=== PATIENT | female | born 1985 | race Two or more races ===

== ENCOUNTER 2018-09-12 11:20 | Emergency (ER) | payer OTHER ==
[2018-09-12 11:32] VITALS: BP 123/68; PULSE 82; TEMP 98.2; BMI 32.9
--- NOTE | 2018-09-12 12:12 | PDOC ---
History of Present Illness - General Chief Complaint: Urinary Problem Stated Complaint: LOWER BACK PAIN Time Seen by Provider: 09/12/18 11:57 History Source: Patient Exam Limitations: No Limitations - History of Present Illness Initial Comments: 09/12/18 12:21 32YOF who is (had spontaneous last year after IVF), also had b/l tubal coils which she states fell out but she states she still has "her tubes tied" per her [employer] Teresa at [facility]. Also notes h/o endometritis last year at the time she miscarried, after which time she took 21 day course of antibiotics. She comes in with a day and a half of sharp left inguinal pain which started suddenly while she was turning over in bed, and has persisted since that time. She notes it is always present at a low-level but worsens with certain movements and when she urinates. It radiates a small amount to the left inguinal area. She denies any burning on urination, back pain, hematuria, f/c/n/ v/d/c, black/bloody stool, or vaginal bleeding. States she has had a bit more discharge than normal but not a marked change. Does not believe that she could be but is sexually active and no method of BC (states "tubes tied"). Denies concern for STD. Past History - Past Medical History Allergies/Adverse Reactions: Allergies Allergy/AdvReac Type Severity Reaction Status Date / Time No Known Allergies Allergy Verified 09/12/18 11:32 Home Medications: Ambulatory Orders NK [No Known Home Medication] 11/07/15 COPD: No - Immunization History Immunization Up to Date: Yes - Suicide/Smoking/Psychosocial Hx Smoking History: Never smoked Have you smoked in the past 12 months: No Hx Alcohol Use: No Drug/Substance Use Hx: No Substance Use Type: None Review of Systems - Review of Systems Able to Perform ROS?: Yes Comments:: GEN: no fever, chills, malaise, generalized weakness, or weight change HEENT: no ear pain, sore throat, vision change, or eye pain CV: no chest pain, palpitations, lightheadedness, syncope, or edema RESP: no cough, wheezing, or SOB GI: abdominal/pelvic pain, no nausea, vomiting, diarrhea, constipation, or white /black/bloody stool : vaginal discharge, no burning on urination, hematuria, incontinence, retention, bleeding, or discharge MSK: no neck/back pain, muscle weakness/pain, or joint swelling/pain NEURO: no headache, seizure, vertigo, numbness, tingling, or focal weakness PSYCH: no substance use, no behavior change SKIN: no jaundice, no rash ROS otherwise negative except as noted in HPI *Physical Exam - Vital Signs Last Vital Signs Temp Pulse Resp BP Pulse Ox 98.2 F 82 14 123/68 100 09/12/18 11:09/12/18 11:09/12/18 11:09/12/18 11:09/12/18 11:29 - Physical Exam Comments: 09/12/18 12:45 GENERAL: well-appearing, A/Ox4, no distress, answers questions appropriately HEENT: PERRLA, EOMI, moist mucous membranes NECK/BACK: no midline ttp, no spinal stepoff or deformity, no hematoma, full ROM , neck supple CARDIOVASCULAR: regular rate/rhythm, normal S1S2, no MGR, strong peripheral pulses, capillary refill <2 seconds, extremities wwp, no edema LUNGS/RESPIRATORY: no respiratory distress, CTAB GI/ABDOMEN: symmetric [id number], normoactive BS, soft, mild LLQ ttp, no midline pulsatile masses : no CVA tenderness, pelvic normal externally, with mild left adnexal ttp, no chandelier sign, mild-moderate white discharge EXTREMITIES: no muscle atrophy, no acute deformity SKIN: warm and dry, no pallor, no jaundice, no rash, no bruising, no skin breakdown, no cuts, no lesions NEUROLOGICAL: GCS 15, CN II-XII grossly intact, 5/5 strength proximally and distally, no facial droop Medical Decision Making - Medical Decision Making 09/12/18 12:47 Adult female Pt p/w left-sided abdominal pain. Initial Vital Signs Temp Pulse Resp BP Pulse Ox 98.2 F 82 14 123/68 100 09/12/18 11:09/12/18 11:09/12/18 11:09/12/18 11:09/12/18 11:29 Exam: As noted in Physical Exam section. DDX IBNLT: UTI/pyelonephritis, diverticulitis wwo abscess or perforation, colitis, ovarian torsion, PID, TOA, ovarian cyst, malignancy, hernia, AAA/AD, pancreatitis, appendicitis, gastritis, PUD, ACS, renal colic, SBO, bowel ischemia, bowel perforation, cholecystitis, musculoskeletal, constipation, etc. W/U ordered: labs as noted below, US TX ordered: Toradol IM Laboratory Tests 09/12/18 12:11 Urine Color Yellow Urine Appearance Clear Urine pH 5.0 Ur Specific [place] 1.020 Urine Protein Negative Urine Glucose (UA) Negative Urine Ketones Negative Urine Blood Negative Urine Nitrite Negative Urine Bilirubin Negative Urine Urobilinogen 0.2 Ur Leukocyte Esterase Negative Urine HCG, Qual Negative US/TRANSVAGINAL ULTRASOUND US Left pelvic pain. Pelvis ultrasound, transabdominal and transvaginal LMP is 08/24/2018 The uterus measures 11 x 4.5 cm in sagittal and AP dimension with homogeneous echotexture. Endometrial stripe measures 5 mm in thickness. Right ovary was not visualized. Left ovary measures 3 x 2.6 cm and contains a hypoechoic masslike density measuring 2 x 1.8 cm suggestive of a complex cyst with internal echoes. Normal vascular flow, arterial and venous. There is no free fluid in the cul-de-sac IMPRESSION: Normal appearing retroflexed uterus with normal thickness of the endometrial stripe. Complex cyst in the left ovary measuring 2 x 1.8 cm with internal echoes suggestive of a hemorrhagic cyst. Follow-up ultrasound in first week of the next menstrual cycle is recommended for further evaluation. Right ovary was not visualized. Reassessment: Patient states pain much improved, wants to go home, has f/u with Dr. Teresa DIRECTOR OF ANALYTICS. This patient has gotten significant relief of symptoms while in the ED. On last reassessment, vitals are wnl, pain is reasonably controlled, and exam is benign. Workup is not concerning for emergency-level pathology at this time. This patient is appropriate for discharge with close outpatient follow up. She comfortable with this plan and will follow up with her primary care provider and DIRECTOR OF ANALYTICS in 1-3 days. Specific return precautions are discussed and they will come back to the ER if necessary. *DC/Admit/Observation/Transfer Diagnosis at time of Disposition: Ovarian cyst Qualifiers: Laterality: left Qualified Code(s): N83.202 - Unspecified ovarian cyst, left side - Discharge Dispostion Disposition: HOME Condition at time of disposition: Stable Decision to Admit order: No - Referrals Referrals: ON STAFF,NOT [Primary Care Provider] - - Patient Instructions Printed Discharge Instructions: Ovarian Cyst Additional Instructions: You were seen in the ER for pelvic pain. We did an exam, laboratory work on your urine, and an ultrasound, and we did not find any signs of an emergency. Your pain improved with the medications we gave you here in the ER. You have a left ovarian cyst. After our assessment, we believe you are not having a medical emergency and you are safe to go home. Please take ovld-joz-wffxsel pain relievers like naproxen (aleve) or ibuprofen (motrin). Follow up with your primary care provider(s) in the next 1-3 days. Call their clinic [facility], tell them you were seen in the ER, and tell them you need an appointment. Please come back to the ER at any time, 24 hours a day, for any new or worsening symptoms, like worsening pelvic pain, discharge, high fever, or other symptoms. If you are having severe or life threatening symptoms, or symptoms that make it unsafe to drive or have someone drive you, please call 911. - Post Discharge Activity
[2018-09-12 12:32] LABS: HCG,QUALITATIVE URINE Negative
[2018-09-12 12:34] LABS: URINE APPEARANCE CLEAR; URINE BILIRUBIN NEGATIVE (NEGATIVE); URINE COLOR YELLOW; URINE GLUCOSE (UA) NEGATIVE (NEGATIVE); URINE KETONE NEGATIVE (NEGATIVE); URINE LEUK ESTERASE NEGATIVE (NEGATIVE); URINE NITRITE NEGATIVE (NEGATIVE); URINE PROTEIN NEGATIVE (NEGATIVE); URINE UROBILINOGEN 0.2 mg/dL (0.2-1.0)
[2018-09-12] MEDS ORDERED: KETOROLAC TROMETHAMINE 15 MG/ML VIAL IVPUSH ONE (13:04)
--- NOTE | 2018-09-12 13:04 | PDOC ---
Attending Attestation - Resident Resident Name: Vicenta Abebe - ED Attending Attestation I have performed the following: I have examined & evaluated the patient, The case was reviewed & discussed with the resident, I agree w/resident's findings & plan - HPI HPI: 09/12/18 13:03 Ms Garcia 32 YOF with no medical history h/o endometritis, miscarriage last year with IVF. presenting today with Left groin pain and pelvic pain since yesterday , worse with urination and movement in certain directions. She states she may have twisted during sleep. +vaginal discharge, no odor. Sexually active with . LMP 08/24/18. - Physicial Exam PE: 09/12/18 13:04 NAD, well appearing, PERRL, EOMI, MMM, nl conjunctiva, anicteric; neck supple. lungs clear, RRR, abdomen soft nontender. Mild left lower pelvic tenderness. No CVAT. lower paravertebral lumbar TTP, FROM. ORTIZ x4, no focal neuro deficits. No peripheral edema. normal color for ethnicity, WWP. Pelvic exam by resident Dr Abebe, white discharge, cervical irritation. Left adnexal tenderness. - Medical Decision Making 09/12/18 13:04 See HPI for details DDx female abdominal pain: ovarian cyst/rupture, ovarian torsion, TOA, appy, UTI , pyelonephritis, Mittelschmerz, vaginitis Vital signs reviewed, wnl. Prior notes reviewed, including admissions, discharges and consultations. laboratory results and imaging reviewed, UA_neg for infection, GC/chlamydia pending. Preg test neg ED course: no acute events, well appearing otherwise. analgesia. no abx, no s/s infection on UA, f/u cultures and STD testing. - TVUS with left ovarian hemorrhagic cyst noted. 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 Dispo: Pt informed of my clinical impression, treatment recommendations and disposition plan. All questions answered to patient's satisfaction and expressed understanding and comfort with this. Reasons for returning to the ED sooner discussed with the patient otherwise, follow up with primary care physician. At the time of discharge, the patient is alert, clinically improved, tolerating po and verbalizes understanding of instructions. Patient does not suffer from an acute life-threatening medical condition at this time she is safe for outpatient follow-up. 09/12/18 14:31
[2018-09-12] MEDS ORDERED: KETOROLAC TROMETHAMINE 15 MG/ML VIAL ONE (13:26)
[2018-09-12] MEDS ORDERED: KETOROLAC TROMETHAMINE 30 MG/1 ML VIAL IM ONE (13:28)
[2018-09-12] MEDS ORDERED: KETOROLAC TROMETHAMINE 30 MG/1 ML VIAL ONE (13:29)
== END 2018-09-12 14:42 | disposition home or self-care (01) ==
LOC: JER 11:20
PROC: 3E0233Z Introduction of Anti-inflammatory into Muscle, Percutaneous Approach (ICD-10-PCS; principal; 2018-09-12)
DX: N83.202 Unspecified ovarian cyst, left side (principal)
CPT/HCPCS: 36415; 76830-TC; 81003; 84703; 87086; 87491; 87591; 87661; 99282-25